=== PATIENT | female | born 1995 | race Caucasian/White ===

== ENCOUNTER 2017-09-01 16:04 | Emergency (ER) | payer OTHER ==
--- NOTE | 2017-09-01 16:56 | EDPHY ---
H & P Time Seen by Provider: 09/01/17 16:12 HPI/ROS: CHIEF COMPLAINT: Foreign body right ear HISTORY OF PRESENT ILLNESS: 22-year-old female presents to the emergency department with a foreign object in her right ear. Patient states the backing of 1 of her earrings went into her ear and she accidentally pushed in. She went to urgent care where they actually pushed it in further and now presents to the emergency department for evaluation. Denies decreased hearing. She has some mild pain associated with this. She has no symptoms in the left ear. No other complaints. ROS: Denies hearing loss or drainage from her right ear. Past Medical/Surgical History: Negative Social History: Single Smoking Status: Never smoked Physical Exam: Examination there is a clear foreign body noted in her right external auditory canal. There is minimal cerumen. The foreign object is all the way up against the tympanic membrane. There is no tragal motion tenderness. There is no bleeding or discharge from her right ear canal. Constitutional: Initial Vital Signs Temperature (C) 36.9 C 09/01/17 16:05 Heart Rate 67 09/01/17 16:05 Respiratory Rate 16 09/01/17 16:05 Blood Pressure 124/79 H 09/01/17 16:05 O2 Sat (%) 99 09/01/17 16:05 Allergies/Adverse Reactions: No Known Allergies Allergy (Unverified 09/01/17 16:08) Home Medications: Medication Instructions Recorded Control 09/01/17 MDM/Departure - [facility] ED Course/Re-evaluation: 22-year-old female presents to the emergency department with foreign body in her right ear. Multiple attempts were made including a lit ear curette, gentle irrigation as well as gentle suction which was unsuccessful. The patient was not tolerating this wit. She was complaining of pain. I spoke with Dr. Juan Francisco Maravilla and he agreed to see the patient in the office tomorrow. Family is comfortable with this plan. - Depart Disposition: Home, Routine, Self-Care Clinical Impression: Foreign body in right ear Qualifiers: Encounter type: initial encounter Qualified Code(s): T16.1XXA - Foreign body in right ear, initial encounter Condition: Good Instructions: Ear Foreign Body (ED) Additional Instructions: Call in the morning to arrange follow-up with ENT to be seen tomorrow. Tell them that we spoke with Dr. Juan Francisco Maravilla while you are in the emergency department and he said to get in tomorrow. Referrals: Juan Francisco Maravilla MD [Medical Doctor] - 1 day without fail (ENT on-call)
[2017-09-01 17:13] VITALS: BP 111/68
== END 2017-09-01 17:13 | disposition home or self-care (01) ==
DX: S00.451A Superficial foreign body of right ear, initial encounter (principal); W45.8XXA Other foreign body or object entering through skin, initial encounter; Y99.8 Other external cause status; Y93.89 Activity, other specified